=== PATIENT | female | born 1960 ===

== ENCOUNTER 2017-10-13 23:08 | Inpatient (IN) | payer OTHER ==
[2017-10-13 23:16] VITALS: BMI 34.9
[2017-10-13] MEDS ORDERED: Morphine 4 mg/ml ISec IM STA (23:17)
--- NOTE | 2017-10-13 23:21 | ED PDOC ---
Arrival/HPI - General Historian: Patient <Desirae Ascencio - Last Filed: 10/14/17 01:48> <Arnav Ghosh - Last Filed: 10/14/17 01:59> - General Time Seen by Provider: 10/13/17 23:16 - History of Present Illness Narrative History of Present Illness (Text): 10/13/17 23:18 56yo female with no PMhx bib Bls for left ankle pain s/p trauma minutes ago. Patient states she slipped on wet ground, when she stepped out of her car and injured her left ankle. States she has being unable to bear weight since the trauma. Did not take any medication. Denies LOC, dizziness, nausea, vomiting, focal weakness, any other complaint. (Desirae Ascencio A) Past Medical History - Provider Review Nursing Documentation Reviewed: Yes <Desirae solis - Last Filed: 10/14/17 01:48> Family/Social History - Physician Review Nursing Documentation Reviewed: Yes Family/Social History: Unknown Family HX <Desirae solis - Last Filed: 10/14/17 01:48> Allergies/Home Meds <SonuDesirae Victor - Last Filed: 10/14/17 01:48> <Arnav Ghosh - Last Filed: 10/14/17 01:59> Allergies/Adverse Reactions: Allergies iodine Allergy (Verified 10/13/17 23:16) ANAPHYLAXIS Review of Systems - Physician Review All systems were reviewed & negative as marked: Yes - Review of Systems Constitutional: Normal Eyes: Normal ENT: Normal Respiratory: Normal Cardiovascular: Normal Gastrointestinal: Normal Genitourinary Female: Normal Musculoskeletal: Arthralgias (LEft ankle pain) Skin: Normal Neurological: Normal Endocrine: Normal Hemo/Lymphatic: Normal Psychiatric: Normal <Desirae Ascencio A - Last Filed: 10/14/17 01:48> Physical Exam Vital Signs Reviewed: Yes Temperature: Afebrile Blood Pressure: Normal Pulse: Regular Respiratory Rate: Normal Appearance: Positive for: Well-Appearing, Non-Toxic, Comfortable Pain Distress: Moderate Mental Status: Positive for: Alert and Oriented X 3 - Systems Exam Head: Present: Atraumatic, Normocephalic Pupils: Present: PERRL Extroacular Muscles: Present: EOMI Conjunctiva: Present: Normal Mouth: Present: Moist Mucous Membranes Neck: Present: Normal Range of Motion Respiratory/Chest: Present: Clear to Auscultation, Good Air Exchange. No: Respiratory Distress, Accessory Muscle Use Cardiovascular: Present: Regular Rate and Rhythm, Normal S1, S2. No: Murmurs Abdomen: Present: Normal Bowel Sounds. No: Tenderness, Distention, Peritoneal Signs Back: Present: Normal Inspection Upper Extremity: Present: Normal Inspection. No: Cyanosis, Edema Lower Extremity: Present: NORMAL PULSES, Tenderness (Left diffuse ankle), Deformity (External rotated), Neurovascularly Intact, Other (PEdis and posterior pedis pulse palpable). No: Edema, CALF TENDERNESS, Normal ROM ( Unable to ascess secondary to pain.), Swelling Neurological: Present: GCS=15, CN II-XII Intact, Speech Normal Skin: Present: Warm, Dry, Normal Color. No: Rashes Psychiatric: Present: Alert, Oriented x 3, Normal Insight, Normal Concentration <Desirae Ascencio - Last Filed: 10/14/17 01:48> Medical Decision Making <Desirae Ascencio - Last Filed: 10/14/17 01:48> <Arnav Ghosh - Last Filed: 10/14/17 01:59> ED Course and Treatment: 10/14/17 01:39 Pt was seen in ED as soon as she arrived. Pain medication was ordered. Left leg/ foot was NVI. Pedis/posterior pedialis is palpable. Left ankle xray - Tri malleolar with dislocation Lab was ordered Case was DANIAL Roper and pt was admitted Case was DANIAL Becker and he requires chest xray and EKG for clearance, hence he plans to take pt to the OR this morning. He recommends posterior splint and it was placed. (Desirae Ascencio A) - Lab Interpretations Lab Results: 10/13/17 00:09 10/13/17 00:09 Lab Results 10/13/17 00:15: Blood Type Pending, Antibody Screen Pending, BBK History Checked No verified bt 10/13/17 00:09: Sodium 145, Potassium 4.5, Chloride 105, Carbon Dioxide 27, Anion Gap 17, BUN 21, Creatinine 0.8, Est GFR ( Amer) > 60, Est GFR (Non- Af Amer) > 60, Random Glucose 114 H, Calcium 10.1, Total Bilirubin 0.3, AST 48 H , ALT 63 H, Alkaline Phosphatase 96, Total Protein 6.9, Albumin 4.1, Globulin 2.8, Albumin/Globulin Ratio 1.4 10/13/17 00:09: PT 10.3, INR 0.91 L, APTT 30.4 10/13/17 00:09: WBC 11.6 H, RBC 4.57, Hgb 13.4, Hct 40.7, MCV 89.1, MCH 29.3, MCHC 32.9, RDW 13.3, Plt Count 235, MPV 10.8, Gran % 45.5 L, Lymph % (Auto) 47.4 H, Bennett % (Auto) 5.3, Eos % (Auto) 1.5, Baso % (Auto) 0.3, Gran # 5.30, Lymph # (Auto) 5.5 H, Bennett # (Auto) 0.6, Eos # (Auto) 0.2, Baso # (Auto) 0.03 - RAD Interpretation Radiology Orders: 10/13/17 23:17 ANKLE LEFT 3 VIEWS ROUTINE [RAD] Stat 10/13/17 23:18 TIBIA FIBULA LEFT [RAD] Stat 10/13/17 23:21 FOOT LEFT 3 VIEWS ROUTINE [RAD] Stat 10/14/17 01:39 CHEST PORTABLE [RAD] Stat - Medication Orders Current Medication Orders: Discontinued Medications Hydromorphone HCl (Dilaudid) 1 mg IVP STAT STA Stop: 10/14/17 01:02 Last Admin: 10/14/17 01:25 Dose: 1 mg MAR Pain Assessment Document 10/14/17 01:25 OCS (Rec: 10/14/17 01:38 OCS [facility] [id number]) Pain Reassessment Is this a pain reassessment? Yes Sleep Is patient sleeping during reassessment? No Presence of Pain Presence of Pain Yes Pain Scale Used Pain Scale Used Numeric Location Left, Right or Bilateral Left Upper or Lower Lower Pain Location Body Site Ankle Foot Description Description Constant Intensity of Pain at present 10 Pain Behavior Moaning Crying Withdrawal from Touch Facial Grimacing Aggravating Factors ADL's IVP Administration Document 10/14/17 01:25 OCS (Rec: 10/14/17 01:38 OCS [facility] [id number]) Charges for Administration # of IVP Administrations 1 Morphine Sulfate (Morphine) 4 mg IM STAT STA Stop: 10/13/17 23:18 Last Admin: 10/13/17 23:18 Dose: 4 mg MAR Pain Assessment Document 10/13/17 23:18 OCS (Rec: 10/13/17 23:55 OCS [facility] [id number]) Pain Reassessment Is this a pain reassessment? Yes Sleep Is patient sleeping during reassessment? No Presence of Pain Presence of Pain Yes Location Left, Right or Bilateral Left Upper or Lower Lower Pain Location Body Site Ankle Foot Description Description Constant Intensity of Pain at present 10 Aggravating Factors ADL's IM Administration Charges Document 10/13/17 23:18 OCS (Rec: 10/13/17 23:55 OCS [facility] [id number]) Charges for Administration # of IM Administrations 1 - PA / [employer] MANAGER / Resident Statement VINCENT has reviewed & agrees with the documentation as recorded. VINCENT has examined the patient and agrees with the treatment plan. <Arnav Ghosh - Last Filed: 10/14/17 01:59> Disposition/Present on Arrival - Present on Arrival Any Indicators Present on Arrival: No History of DVT/PE: No History of Uncontrolled Diabetes: No Urinary Catheter: No History of Decub. Ulcer: No History Surgical Site Infection Following: None - Disposition Have Diagnosis and Disposition been Completed?: Yes Disposition Time: 01:35 Patient Plan: Admission <Desirae Ascencio - Last Filed: 10/14/17 01:48> <Arnav Ghosh - Last Filed: 10/14/17 01:59> - Disposition Diagnosis: Ankle fracture Disposition: HOSPITALIZED Patient Problems: Current Active Problems Problem Status Onset Ankle fracture Acute Condition: GUARDED Referrals: Jaqueline Eduardo DO [Primary Care Provider] - Follow up with primary
[2017-10-14 00:16] LABS: BASO # 0.03 K/mm3 (0.0-2.0); BASO % 0.3 % (0.0-3.0); EOS # 0.2 (0.0-0.7); EOS % 1.5 % (1.5-5.0); GRAN # 5.3 (1.4-6.5); GRAN % 45.5 % (50.0-68.0); HEMOGLOBIN 13.4 g/dL (12.0-16.0); LYMPH # 5.5 (1.2-3.4); LYMPH % 47.4 % (22.0-35.0); MEAN CELL VOLUME 89.1 fl (80.0-105.0); MEAN CORPUSCULAR HEMOGLOBIN 29.3 pg (25.0-35.0); MEAN CORPUSCULAR HGB CONC 32.9 g/dl (31.0-37.0); MEAN PLATELET VOLUME 10.8 fl (7.0-11.0); MONO # 0.6 (0.1-0.6); MONO % 5.3 % (1.0-6.0); RBC 4.57 10^6/uL (3.5-6.1); RED CELL DISTRIBUTION WIDTH 13.3 % (11.5-14.5); WHITE BLOOD COUNT 11.6 10^3/ul (4.5-11.0)
[2017-10-14 00:28] LABS: ALB/GLOB RATIO 1.4 (1.1-1.8); ALBUMIN 4.1 g/dL (3.0-4.8); ALT/SGPT 63 U/L (7-56); AST/SGOT 48 U/L (14-36); BLOOD UREA NITROGEN 21 mg/dL (7-21); CALCIUM 10.1 mg/dL (8.4-10.5); GFR AFRICAN-AMERICAN > 60; GFR NON-AFRICAN AMERICAN > 60; INR 0.91 (0.93-1.08); PARTIAL THROMBOPLASTIN TIME 30.4 Seconds (25.1-36.5); PROTHROMBIN TIME 10.3 SECONDS (9.4-12.5)
--- NOTE | 2017-10-14 00:29 | RAD ---
EXAM: XR Left Foot Complete, 3 or More Views CLINICAL HISTORY: 56 years old, female; Injury or trauma; Fall; Initial encounter; Fracture, traumatic; Closed fracture; Foot; Left; Additional info: Foot pain S/P trauma TECHNIQUE: Frontal, lateral and oblique views of the left foot. COMPARISON: No relevant prior studies available. FINDINGS: Bones/joints: Fracture dislocation of ankle joint. See ankle and tibia-fibula report. Soft tissues: Soft tissue swelling. No radiopaque foreign body. IMPRESSION: 1. Ankle fracture-dislocation. 2. Remainder of findings as above.
[2017-10-14] MEDS ORDERED: HYDROmorphone 0.5 mg/0.5 ml ISec IVP STA (01:01)
[2017-10-14] MEDS ORDERED: Sodium Chloride 0.9% 1,000 ML IV STA (01:59)
[2017-10-14] MEDS ORDERED: Oxycodone/Acetaminophen 5/325 mg Tab PO PRN (02:42)
[2017-10-14] MEDS ORDERED: HYDROmorphone 2 mg/ml ISec IVP STA (04:00)
[2017-10-14] MEDS: Morphine 5 MG/ML SYRINGE IVP PRN ×4 (05:04→23:18)
--- NOTE | 2017-10-14 07:30 | CP.PCM.PN ---
Subjective - Date & Time of Evaluation Date of Evaluation: 10/14/17 Time of Evaluation: 07:30 - Subjective Subjective: Patient complained of pain in left foot. No other complaints. Has been admitted with left ankle fracture. Has PMH of hystrectomy, surgery for ovarian cyst, obesity. Objective - Vital Signs/Intake and Output Vital Signs (last 24 hours): Temp Pulse Resp BP Pulse Ox 98.1 F 100 H 19 174/87 H 96 10/14/17 03:57 10/14/17 03:57 10/14/17 03:57 10/14/17 03:57 10/14/17 03:57 - Medications Medications: Current Medications Sodium Chloride (Sodium Chloride 0.9%) 1,000 mls @ 100 mls/hr IV .Q10H STA Stop: 10/14/17 11:58 Last Admin: 10/14/17 02:37 Dose: 100 mls/hr Morphine Sulfate (Morphine) 5 mg IVP Q4H PRN PRN Reason: Pain, moderate (4-7) Last Admin: 10/14/17 05:04 Dose: 5 mg Oxycodone/Acetaminophen (Percocet 5/325 Mg Tab) 1 tab PO Q4H PRN PRN Reason: Pain, moderate (4-7) Stop: 10/14/17 12:00 - Labs Labs: PT 10.3 SECONDS (9.4-12.5) 10/13/17 00:09 INR 0.91 (0.93-1.08) L 10/13/17 00:09 APTT 30.4 Seconds (25.1-36.5) 10/13/17 00:09 - Constitutional Appears: Well, No Acute Distress - Head Exam Head Exam: ATRAUMATIC, NORMAL INSPECTION, NORMOCEPHALIC - Eye Exam Eye Exam: Normal appearance - ENT Exam ENT Exam: Normal External Ear Exam - Neck Exam Neck Exam: Normal Inspection - Respiratory Exam Respiratory Exam: NORMAL BREATHING PATTERN - Cardiovascular Exam Cardiovascular Exam: absent: JVD - GI/Abdominal Exam GI & Abdominal Exam: absent: Distended - Rectal Exam Rectal Exam: Deferred - Exam Additional comments: Deferred. - Extremities Exam Additional comments: Left leg in soft cast. - Back Exam Back Exam: NORMAL INSPECTION - Neurological Exam Neurological Exam: Alert, Awake, Oriented x3 - Psychiatric Exam Psychiatric exam: Normal Affect, Normal Mood - Skin Skin Exam: Normal Color Assessment and Plan - Assessment and Plan (Free Text) Assessment: Left ankle pain. HIstory hystrectomy. History ovarian cyst surgery. Obesity. Plan: Ketorolac 30 mg IV x 1. Morphine sulfate 6 mg IV x 1. Continue present management .
--- NOTE | 2017-10-14 08:31 | CARD ---
APPROVED REPORT EKG Measurement Heart [id number] <Conclusion> Normal sinus rhythm Inferior infarct, age undetermined
[2017-10-14] MEDS ORDERED: Phenylephrine 10 mg/ml Inj ONE (08:43)
[2017-10-14] MEDS ORDERED: Succinylcholine 200 mg/10 ml Inj IV ONE (08:43)
[2017-10-14] MEDS ORDERED: Etomidate 20 mg/10ml Inj IV ONE (08:43)
[2017-10-14] MEDS ORDERED: Propofol 10 mg/ml Inj (20 ML) ONE ×3 (08:44→11:11)
[2017-10-14] MEDS ORDERED: Lactated Ringer's 1,000 ML IV SCH (08:45)
[2017-10-14] MEDS ORDERED: Desflurane Inhalation Anesthetic Liq (240 ml) ONE (09:09)
--- NOTE | 2017-10-14 09:33 | RAD ---
HISTORY: admission COMPARISON: No prior. FINDINGS: LUNGS: Minor linear atelectasis or scarring left mid to lower lung field. PLEURA: No significant pleural effusion identified, no pneumothorax apparent. CARDIOVASCULAR: Normal. OSSEOUS STRUCTURES: No significant abnormalities. VISUALIZED UPPER ABDOMEN: Normal. OTHER FINDINGS: None. IMPRESSION: Minor linear atelectasis or scarring left mid to lower lung field.
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
[2017-10-14] MEDS ORDERED: Esmolol 100 mg/10ml Inj IV ONE (09:41)
[2017-10-14] MEDS ORDERED: Bupivacaine 0.5% Inj(30mL) ONE (09:51)
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
[2017-10-14] MEDS ORDERED: HYDROmorphone 1 mg/ml ISec IVP PRN (11:50)
--- NOTE | 2017-10-14 12:08 | CON ---
DATE: 10/14/2017 The patient is a 56-year-old female who slipped and fell in the evening of 10/13/2017, sustained a closed trimalleolar fracture of that left ankle and calluses laterally and posteriorly. It was not reduced in the Emergency Room when she came in at about 11:00 p.m. on the and now it is 05:00 in the morning and she was just put in a posterior splint without any attempted reduction so I will have to bring her to Surgery sooner and later to check the integrity of the skin with the pressure against the medial malleolar fracture could be causing a blister, so in 2 hours, we will bring her to Surgery for ORIF with external fixator. The family and the patient were told of the consequences and risks and benefits, if we do not do anything right away, it is going to cause pressure under skin, which causes skin necrosis so if it is too compromised, we will have to put external fixator and temporize it for 10 days and then, open the skin to close the lateral malleolus and medial malleolus and possible posterior malleolus. She can move her toes. There are no signs of compartment syndrome. We will bring her to Surgery, I will get all the equipment at 08:00 in the morning, presently it is 05:00 in the morning, the family has been told. FINAL DIAGNOSIS: Fracture dislocation of left ankle for open reduction and internal fixation with external fixator today. Pop Becker DO
[2017-10-14] MEDS ORDERED: Morphine 5 MG/ML SYRINGE IM ONE (12:10)
[2017-10-14] MEDS ORDERED: Morphine 5 MG/ML SYRINGE ONE (12:14)
--- NOTE | 2017-10-14 19:33 | CON ---
DATE: 10/14/2017 LOCATION: Room 360, bed 1. REASON FOR CONSULTATION: Abnormal EKG; fractured ankle, needs surgery; rule out coronary artery disease; rule out old VA on EKG. HISTORY OF PRESENT ILLNESS: Patient is a 56-year-old female admitted with the history that she got out of car and she lost the holding of the foot and fell down, and found to have fracture of the ankle, left side. Patient needs surgery. In EKG that read as old inferior wall VA. So, the patient needs cardiac risk stratification and evaluation. Patient lying flat in bed without chest pain, shortness of breath or palpitation. Denies any history of VA. Denies any exertional chest pain. No history of any medical disease. PAST MEDICAL HISTORY: In the past, the patient had hysterectomy and also had surgery 3 times for ovarian cyst. PERSONAL HISTORY: Denies smoking, denies drinking. ALLERGIES: DENIES ANY ALLERGIES. MEDICATIONS AT HOME: Patient does not take any medication at home. FAMILY HISTORY: Positive for diabetes. PHYSICAL EXAMINATION: VITAL SIGNS: Blood pressure 145/77, respirations 18, pulse 95. Patient is afebrile. HEENT: Head is normocephalic. Eyes: Pupils are normal. Conjunctivae normal. Nose and throat are normal. NECK: JVP low. Carotids are equal. THORAX: AP diameter normal. LUNGS: Clear. CARDIOVASCULAR: S1 and S2. ABDOMEN: Soft, no tenderness. No organomegaly. Bowel sounds normal. EXTREMITIES: No clubbing. No cyanosis. Patient has fractured left ankle. LABORATORY DATA: WBC 11.6, hemoglobin 13.4, hematocrit 40.7, platelets 235. Sodium 145, potassium 4.5, BUN 21, creatinine 0.8, random glucose 114, AST 48, ALT 63, total protein and albumin normal. PT 10.3, INR 0.91, PTT 30.4. EKG showed regular sinus rhythm, Q wave in III, and aVF. Although, EKG read as old inferior wall VA, but actually the patient has no history of VA, no history of any anginal symptoms, Q in III sometime can be a normal variation. DIAGNOSIS: Fractured ankle on the left. PLAN: Patient is stable from cardiac point of view, can go for left ankle surgery at moderate risk. When she recovers from ankle surgery in a few months, she can have stress test as an outpatient for further evaluation. At present, the patient's cardiac status is stable and there is no contraindication not to do surgery. Patient can go for the surgery at moderate risk and we will continue to follow with you. Kyleigh Cruz MD
[2017-10-14] MEDS: ceFAZolin 1 gm in NS 1 GM/100 ML BAG IVPB SCH (20:01)
[2017-10-15] MEDS: ceFAZolin 1 gm in NS 1 GM/100 ML BAG IVPB SCH (03:54)
[2017-10-15 06:48] LABS: BASO # 0.01 K/mm3 (0.0-2.0); BASO % 0.1 % (0.0-3.0); EOS # 0.1 (0.0-0.7); EOS % 1.1 % (1.5-5.0); GRAN # 6.88 (1.4-6.5); GRAN % 70.8 % (50.0-68.0); LYMPH # 2.2 (1.2-3.4); LYMPH % 22.3 % (22.0-35.0); MEAN CELL VOLUME 89.5 fl (80.0-105.0); MEAN CORPUSCULAR HGB CONC 32.4 g/dl (31.0-37.0); MEAN PLATELET VOLUME 10.4 fl (7.0-11.0); MONO # 0.6 (0.1-0.6); MONO % 5.7 % (1.0-6.0); RBC 3.9 10^6/uL (3.5-6.1); RED CELL DISTRIBUTION WIDTH 13.8 % (11.5-14.5); WHITE BLOOD COUNT 9.7 10^3/ul (4.5-11.0)
[2017-10-15 07:26] LABS: ALB/GLOB RATIO 1.1 (1.1-1.8); ALBUMIN 3.1 g/dL (3.0-4.8); ALT/SGPT 44 U/L (7-56); AST/SGOT 34 U/L (14-36); BLOOD UREA NITROGEN 15 mg/dL (7-21); CALCIUM 8.5 mg/dL (8.4-10.5); GFR AFRICAN-AMERICAN > 60; GFR NON-AFRICAN AMERICAN > 60
[2017-10-15 07:28] LABS: HEMOGLOBIN 11.3 g/dL (12.0-16.0)
--- NOTE | 2017-10-15 08:13 | HP ---
HISTORY OF PRESENT ILLNESS: Patient slipped and fell, getting out of her car, late evening of 10/13/2017, sustained a trimalleolar fracture dislocation of her left ankle and was not reduced in the ER, but just putting a splint for dislocation still present. I got a call at 1 o'clock to see her. We are going to take her to Surgery at 8:30 this morning. When she has good neurovascular status, her pain is helped with morphine 4 mg and she has normal EKG, normal chest x-ray. Cardiovascular system is okay. She had past history of uterine cancer. No previous fractures. Good neurovascular status of lower extremities. No head injuries. No other injuries. We plan to do the surgery this morning at 8:30 at [facility] for possible ORIF or external fixator, if there is too much swelling. Pop Becker DO
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
--- NOTE | 2017-10-15 08:24 | OP ---
PROCEDURE DATE: 10/14/2017 PREOPERATIVE DIAGNOSIS: Fracture dislocation of left ankle with highly comminuted lateral malleolus, posterior malleolus small, and a medial malleolus below the profound. POSTOPERATIVE DIAGNOSIS: Fracture dislocation of left ankle with highly comminuted lateral malleolus, posterior malleolus small, and a medial malleolus below the profound. PROCEDURES: Open reduction and internal fixation of the lateral malleolus, closed reduction of the dislocation, and approximation of the medial malleolus and posterior malleolus and held with eventually the cast. DESCRIPTION OF PROCEDURE: The patient was taken to the OR. The left ankle was prepped and draped in sterile fashion with general anesthesia endotracheal tube. The left lower extremity was prepped and draped in sterile fashion. No tourniquet was utilized. With the patient prepped and draped on the table, with the help of the C-arm, we could reduce the fracture as much 95% of its displacement, and once we did, we now did a lateral incision on the tip of the lateral malleolus proximally for 7 inches. The fascia was opened in line with the incision. The fracture was identified and irrigated with normal saline and approximated as best as possible. It was not a simple lateral malleolar fracture, it was highly comminuted and intricate, with expanded about 2 inches of fracture surface proximal to distal and circumferentially 360 degrees. So it was almost impossible to get proper length and rotation, but we did the best we could, and once we got our length, we held it reduced with bone clamps over the plate that we planned to put, which was a 7-hole plate and once it was lined up well with the help of K-wires, we did a formal stabilization of the lateral malleolar fracture by applying the 7-hole plate with 3 cortical screws proximally and 7 locking screws distally, and to secure the syndesmosis disruption, we took 2 syndesmotic screws lateral to the medial 4 cortices each. The patient appeared to have good anatomic reduction. The previous syndesmotic disruption is improved with the syndesmotic screws, and the wound was irrigated with normal saline and closed in layers, starting with 0-Vicryl for the deep layer interrupted, subcutaneous with 2-0 Vicryl interrupted, skin with a combination of 2-0 nylon and stainless steel mery. The patient was placed in a short-leg AO splint, sent to recovery room in good condition. Pop Becker DO
[2017-10-15] MEDS: Oxycodone/Acetaminophen 5/325 mg Tab PO PRN ×4 (08:41→20:26)
[2017-10-15] MEDS: Enoxaparin 30 mg Syringe SC SCH (09:49)
[2017-10-15] MEDS: Morphine 5 MG/ML SYRINGE IVP PRN ×4 (10:43→21:42)
--- NOTE | 2017-10-15 11:33 | RAD ---
PROCEDURE: Fluoroscopy up to 1 hour HISTORY: O.R.I.F. LEFT ANKLE COMPARISON: TECHNIQUE: Fluoroscopy was provided in the operating room. 57 seconds of fluoro time. Eight images were submitted FINDINGS: The study shows internal fixation of a distal fibular fracture with a plate and multiple screws IMPRESSION: As above
--- NOTE | 2017-10-15 13:52 | PN ---
DATE: 10/15/2017 FIRST DAY POSTOP VISIT This is a 56-year-old female in room 360, bed 1. She underwent ORIF of her left ankle fracture with a plate under lateral malleolus and stapler and medial malleolus was treated with a short leg cast and posterior malleolus treated conservatively also with a cast in the left leg. She is moving her toes well, could do her quad set, will get up out of bed today. She is tolerating the discomfort and told her the pain would subside in a couple of days and there are no signs of infection or cast discomfort, more just generalized pain from the fracture and surgery. We will start physical therapy, out of bed, no weightbearing on left leg, and she is going to decide whether she can go home or live alone or to ____ subacute rehab, social and political studies professor will help us to decide which is the best option and she is out of stair and a ____weight so we will try to keep her on the same level floor wherever she goes. I am planning to keep the cast off for 2 to 3 weeks and then, take the sutures out and put on the short leg cast for another month, then she could start putting weight on that leg, because she just had syndesmotic screws, it should be protected from full weightbearing for three months. Pop Becker DO
--- NOTE | 2017-10-15 15:17 | PN ---
DATE: LOCATION: Patient in room 360, bed 1. REASON FOR CONSULTATION: Abnormal EKG; fractured ankle, status post surgery for fractured ankle. SUBJECTIVE: The patient had surgery for the left ankle. Patient denies any chest pain, shortness of breath, or palpitations. Patient's EKG was read as old inferior wall SD, so the cardiology consult was called for cardiac risk stratification. Patient was clinically stable, so patient had surgery without any cardiac symptoms. Patient had no history of any cardiac disease or any chest pain in the past. PHYSICAL EXAMINATION: VITAL SIGNS: Blood pressure 116/51, respirations 20, pulse 92, temperature is 98.8. HEENT: Head is normocephalic. Eyes: Pupils are normal. Conjunctivae normal. Nose and throat are normal. NECK: JVP low. Carotids are equal. THORAX: AP diameter normal. LUNGS: Clear. CARDIOVASCULAR: S1 and S2. ABDOMEN: Soft, no tenderness. No organomegaly. EXTREMITIES: Patient had surgery on the left ankle. DIAGNOSIS: Fractured ankle on the left, status post surgery. PLAN: Patient has no cardiac symptoms. Patient is getting IV fluid therapy, Lovenox 30 mg subcutaneous daily. We will continue present therapy. Kyleigh Cruz MD
--- NOTE | 2017-10-15 22:45 | PN ---
DATE: SUBJECTIVE: The patient is a 56-year-old who slipped on the wet spot when getting out of the truck, unable to get up, so son-in-law called ambulance and was brought to ER, had open reduction and internal fixation done. PHYSICAL EXAMINATION: VITAL SIGNS: The patient is afebrile, pulse 101, respiration 20, blood pressure 141/79. LUNGS: Bilateral fair airflow. No rhonchi or crackle. HEART: S1 and S2 audible. ABDOMEN: Soft, nontender. No rebound, no guarding. NEUROLOGIC: The patient is awake, alert and communicative. EXTREMITIES: Left leg and foot is in cast and dressing. LABORATORY DATA: WBC is 9.7, hemoglobin 11.3, hematocrit 34.9, platelet 170. Chemistry: Sodium 140, potassium 3.8, chloride 108, CO2 of 23, BUN 15, creatinine 0.9, blood sugar of 107. ASSESSMENT AND PLAN: 1. Status post fall. 2. Status post left trimalleolar fracture, status post open reduction and internal fixation. 3. Deep venous thrombosis prophylaxis. She is getting analgesic as needed, social media developer are trying to make arrangement for subacute rehab. As soon as arrangement is made, the patient can be discharged to subacute rehab. Javier Roper MD
[2017-10-16] MEDS: Oxycodone/Acetaminophen 5/325 mg Tab PO PRN ×4 (00:33→22:54)
[2017-10-16] MEDS: Morphine 5 MG/ML SYRINGE IVP PRN ×4 (02:38→21:00)
--- NOTE | 2017-10-16 08:26 | PN ---
DATE: 10/15/2017 LOCATION: Room 360, bed 1. SUBJECTIVE: Patient is a 56-year-old female. Patient is 1 day postop from ORIF of trimalleolar fracture and dislocation of the ankle where we did a lateral fibular plating with anatomic plate and no open reduction was done at the medial malleolus due to severe tissue trauma and posterior malleolus was too small to warrant an ORIF. The patient did well postop. Today, the nurse called me up to come and see her because of her undue pain. I came to see her about 3:00 and it shows that she has good circulation, could move the toes. She is resting comfortably. I did not think that she need any investigation by opening up the cast because it was well-padded and not too tight. The family was there and she is sitting up, looks comfortable. She even ate today and does not have any nauseousness but she does want her morphine sulfate. I told the nurse we should start declining the morphine. We will wait till tomorrow and start giving her p.o. medicines because I do not think she needs heavy medicine for pain right now. I explained that in 3 days the pain will be much less because the swelling will be going down and I will follow her when she leaves the hospital. She has a normal postoperative course for a nasty fracture and dislocation of the left ankle and just underwent ORIF yesterday too. So, she has got two reasons for the swelling, the fracture and the surgery. I will follow her closely, but she does not need any undue dressing changes at this time, just normal precaution of elevation and no weightbearing on that left leg. Pop Becker DO LAI
[2017-10-16] MEDS: Enoxaparin 30 mg Syringe SC SCH (09:19)
[2017-10-16] MEDS ORDERED: Morphine 5 MG/ML SYRINGE IVP STA (11:04)
--- NOTE | 2017-10-16 13:57 | PN ---
DATE: 10/16/2017 REASON FOR CONSULTATION AND FOLLOWUP: Preop evaluation, abnormal EKG, fracture of the ankle status post surgery, open reduction and internal fixation. SUBJECTIVE: Patient denies any chest pain, shortness of breath, or any palpitation. OBJECTIVE: GENERAL: Not in any apparent distress. VITAL SIGNS: Temperature afebrile, heart rate 95, blood pressure 141/77. HEENT: PERRLA. Extraocular muscles intact. NECK: Supple. No carotid bruit. No thyromegaly. CHEST: Clear to auscultation. HEART: S1 and S2, regular. ABDOMEN: Soft. EXTREMITIES: Clubbing and cyanosis negative. LABORATORY DATA: Blood workup as follows. WBC 9.7, hemoglobin 11.3, hematocrit 34.9, platelet count 170. Chemistry shows sodium 140, potassium 3.8, chloride 108, carbon dioxide 23, anion gap of 12. BUN 15, creatinine 0.9. IMPRESSION: Left ankle status post open reduction and internal fixation, obesity with body mass index of 35 kg/m2, status post open reduction and internal fixation, hypokalemia, postoperative anemia mild. RECOMMENDATIONS: Continue adequate analgesia. Continue mobilization. Continue DVT prophylaxis to prevent DVT. CVS status is stable, day or two. Thank you Dr. Roper for providing me the opportunity in taking care of the patient, Fatmata Victoria. Kyleigh Deng MD
--- NOTE | 2017-10-16 15:37 | PN ---
DATE: SUBJECTIVE: The patient is 56 years old who came to emergency room after she fell, sustained left trimalleolar fracture, had open reduction and internal fixation, seen and examined, just came back from therapy, complained of pain. PHYSICAL EXAMINATION: VITAL SIGNS: She has a temperature of 99.6, pulse 95, respiration 17, blood pressure 141/77. LUNGS: Bilateral fair airflow. No rhonchi or crackle. HEART: S1 and S2 audible. ABDOMEN: Soft, nontender. No rebound, no guarding. NEUROLOGIC: The patient is awake and alert, able to communicate. Left foot is in the cast. LABORATORY DATA: WBC is 9.7, hemoglobin 11.3, hematocrit 34.9, and platelet 170. Chemistry: Sodium 140, potassium 3.8, chloride 108, CO2 of 23. BUN of 15, creatinine 0.9. Blood sugar 107. ASSESSMENT: 1. Status post fall. 2. Left trimalleolar fracture, status post open reduction and internal fixation. 3. Borderline hypertension. 4. Anemia. PLAN: The patient is currently on laxative. She is on Lovenox and she is on Protonix. The patient's relatives are in the process of making arrangement for subacute rehab. As soon as the patient get a bed, she will be discharged. Javier Roper MD
[2017-10-17] MEDS: Morphine 5 MG/ML SYRINGE IVP PRN ×3 (05:56→20:33)
[2017-10-17] MEDS: Pantoprazole 40 mg EC Tab PO SCH (05:56)
[2017-10-17] MEDS: Enoxaparin 30 mg Syringe SC SCH (09:10)
[2017-10-17] MEDS: Oxycodone/Acetaminophen 5/325 mg Tab PO PRN ×2 (09:23→16:32)
--- NOTE | 2017-10-17 13:24 | PN ---
DATE: 10/17/2017 FOLLOWUP REPORT LOCATION: A 56-year-old female in room 360, bed 1. SUBJECTIVE: The patient underwent ORIF of her fracture dislocation of left ankle on 10/14/2017. She had plating of the fibula and closed reduction and casting of the medial malleolus and posterior malleolus. The posterior splint was well padded for protection of the skin and she seems to be in much less pain. She can move the toes well. Sitting up in a chair. We have to get her to do more physical therapy to ambulate, nonweightbearing and we will have to do stairs because there is a good chance she is going to be going home to her house in the third floor and I will see her in the office in 2 weeks, but I heard she is going to be provided for home therapy and a visiting nurse. She has no fever. Pain is much less and we will follow her as an outpatient after discharge. Pop Becker DO
--- NOTE | 2017-10-17 14:32 | PN ---
DATE: REASON FOR CONSULTATION AND FOLLOWUP: Preop evaluation, abnormal , fracture of the ankle status post surgery, open reduction and internal fixation. PHYSICAL EXAMINATION GENERAL: Not in apparent distress. VITAL SIGNS: Temperature afebrile, heart rate 88, blood pressure 134/78. HEENT: PERRLA. Extraocular muscles intact. NECK: Supple. No carotid bruits or thyromegaly. CHEST: Clear to auscultation. HEART: S1 and S2, regular. ABDOMEN: Soft. EXTREMITIES: Clubbing and cyanosis negative. LABORATORY DATA: Blood workup as follows: WBC 9.3, hemoglobin 11.3, hematocrit 34.9, platelet count 170,000. Chemistry shows sodium 140, potassium 3.8, chloride 108, carbon dioxide 23, anion gap of 12. BUN 15, creatinine 0.9. ASSESSMENT: Status post fracture of left ankle, status post open reduction internal fixation; hypertension; obesity; body mass index elevated; hypokalemia, postoperative anemia. RECOMMENDATIONS: We will start low dose of lisinopril for [id number] blood pressure, but this blood pressure could be secondary to pain, but if remains persistently elevated, consider 5 mg of ramipril with holding parameters. We will follow with you. We will repeat the blood workup in the morning. Thank you, Dr. Roper, for providing us the opportunity in taking care of the patient, Fatmata Victoria. Kyleigh Deng MD
[2017-10-18] MEDS: Oxycodone/Acetaminophen 5/325 mg Tab PO PRN ×4 (00:57→17:04)
--- NOTE | 2017-10-18 04:31 | DS ---
HISTORY OF PRESENT ILLNESS: Patient is 56 years old, seen and examined, doing well, was able to tolerate physical therapy. She was given analgesic prior to therapy, otherwise doing well, eating and tolerating well. PHYSICAL EXAMINATION: VITAL SIGNS: She has temperature 99, pulse 88, respiration 18, blood pressure 153/84. LUNGS: Bilateral good airflow. No rhonchi or crackle. HEART: S1 and S2 audible. ABDOMEN: Soft. Nontender. No rebound. No guarding. NEUROLOGIC: The patient is awake and alert, able to communicate. Left foot is in the cast. ASSESSMENT AND PLAN: 1. Left trimalleolar fracture. 2. Hypertension. 3. Difficulty walking. PLAN: Patient is clinically stable to be discharged and that will be determined today where she is going to go. Once the arrangement is made, she will be discharged to subacute rehab. Javier Roper MD
[2017-10-18 06:30] LABS: BASO # 0.01 K/mm3 (0.0-2.0); BASO % 0.1 % (0.0-3.0); EOS # 0.2 (0.0-0.7); GRAN # 5.1 (1.4-6.5); GRAN % 63.2 % (50.0-68.0); HEMOGLOBIN 10.4 g/dL (12.0-16.0); LYMPH # 2.1 (1.2-3.4); LYMPH % 26.5 % (22.0-35.0); MEAN CELL VOLUME 87.8 fl (80.0-105.0); MEAN CORPUSCULAR HEMOGLOBIN 28.1 pg (25.0-35.0); MEAN PLATELET VOLUME 10.2 fl (7.0-11.0); MONO # 0.6 (0.1-0.6); MONO % 7.2 % (1.0-6.0); RBC 3.7 10^6/uL (3.5-6.1); RED CELL DISTRIBUTION WIDTH 13.1 % (11.5-14.5); WHITE BLOOD COUNT 8.1 10^3/ul (4.5-11.0)
[2017-10-18] MEDS: Pantoprazole 40 mg EC Tab PO SCH (06:34)
[2017-10-18 07:22] LABS: ALB/GLOB RATIO 1.1 (1.1-1.8); ALBUMIN 3.2 g/dL (3.0-4.8); ALT/SGPT 81 U/L (7-56); AST/SGOT 100 U/L (14-36); BLOOD UREA NITROGEN 10 mg/dL (7-21); CALCIUM 9.5 mg/dL (8.4-10.5); GFR AFRICAN-AMERICAN > 60; GFR NON-AFRICAN AMERICAN > 60; MAGNESIUM 2.1 mg/dL (1.7-2.2)
[2017-10-18] MEDS: Enoxaparin 30 mg Syringe SC SCH (09:08)
--- NOTE | 2017-10-18 15:42 | PN ---
DATE: REASON FOR CONSULTATION AND FOLLOWUP: Preop evaluation, status post fracture, status post open reduction and internal fixation and post followup. SUBJECTIVE: Patient denies any chest pain, shortness of breath, or any palpitation. OBJECTIVE: GENERAL: Not in apparent distress. VITAL SIGNS: Temperature afebrile, heart rate , blood pressure 141/85. HEENT: PERRLA. Extraocular muscles intact. NECK: Supple. No carotid bruits or thyromegaly. CHEST: Clear to auscultation. HEART: S1 and S2, regular. ABDOMEN: Soft. EXTREMITIES: Clubbing and cyanosis negative. LABORATORY DATA: Blood workup as follows: WBC 8.1, hemoglobin 10.4, hematocrit 32.5, and platelet count 190. Chemistry shows sodium 138, potassium 3.8, chloride 103, carbon dioxide 27, anion gap of 11. BUN 10, creatinine 0.7. IMPRESSION: Status post fall, status post ankle fracture, status post open reduction and internal fixation; obesity; blood pressure remains elevated probably secondary to pain medication. We will start ramipril 2.5 today, we will start 5 from tomorrow. No active cardiac symptoms at this time. We will sign off and glad to follow up p.r.n. Emphasis on weight reduction modification, lifestyle risk factor modification for coronary artery disease recommended. Thank you Dr. Roper for providing us the opportunity in taking care of the patient, Julien. Kyleigh Deng MD
[2017-10-18 16:46] VITALS: BP 120/63; PULSE 91; RESP 19; TEMP 98.9; O2SAT 95
--- NOTE | 2017-10-19 03:16 | DS ---
HISTORY OF PRESENT ILLNESS: Patient is 56-year-old seen and examined, just finished therapy, doing well, able to walk without weightbearing on the foot. PHYSICAL EXAMINATION: VITAL SIGNS: She is afebrile, pulse 83, respirations 20, blood pressure 141/81. LUNGS: Bilateral good airflow. HEART: S1, S2 audible. ABDOMEN: Soft, nontender. No rebound, no guarding. NEUROLOGICAL: She is awake, alert, oriented, communicative. EXTREMITIES: Left leg is in the cast. LABORATORY DATA: WBC is 8.1, hemoglobin 10.4, hematocrit 32.5, platelets of 190. Sodium 138, potassium 3.8, chloride 103, CO2 of 27, BUN 10, creatinine 0.7. Blood sugar of 102. LFTs are within normal limits. AST 100, ALT is 81. ASSESSMENT AND PLAN: We will continue on deep venous thrombosis prophylaxis. She is on Percocet as needed. She will be taking Protonix and Zosyn as needed. Patient's case was presented to insurance company. Insurance company awaiting approval. She will be either transferred to subacute rehab or she will be sent home today. Javier Roper MD
== END 2017-10-18 18:08 | DRG 494 ==
LOC: ED 23:08 → ERH 10-14 01:57 → 3RNO 10-14 03:31
PROVIDERS: ADMIT Internal Medicine; ATTEND Internal Medicine
PROC: 0QSK04Z Reposition Left Fibula with Internal Fixation Device, Open Approach (ICD-10-PCS; principal; 2017-10-14 08:30)
DX: S82.852A Displaced trimalleolar fracture of left lower leg, initial encounter for closed fracture (principal); D64.9 Anemia, unspecified; W01.0XXA Fall on same level from slipping, tripping and stumbling without subsequent striking against object, initial encounter; I10 Essential (primary) hypertension; E87.6 Hypokalemia; R26.2 Difficulty in walking, not elsewhere classified; E66.9 Obesity, unspecified; Z68.35 Body mass index [BMI] 35.0-35.9, adult; Z85.42 Personal history of malignant neoplasm of other parts of uterus; Y93.89 Activity, other specified; Y92.89 Other specified places as the place of occurrence of the external cause; Z90.710 Acquired absence of both cervix and uterus; Z87.891 Personal history of nicotine dependence